=== PATIENT | female | born 1945 | race Caucasian/White ===

== ENCOUNTER → 2016-10-05 | Outpatient (REF) ==
[~2016-10-05] MED LIST: ANTIVERT 25MG25 MG PO; B COMPLEX & B121 TAB PO; CALCIUM 600/VIT1 CA1 PO; COUMADIN 2MG2 MG/TAB PO; IMODIUM 2MG CAPS2 MG PO; LIORESAL 1010 MG/TAB PO; LOPRESSOR 550 MG/TAB PO; MAGNESIUM250 M1 PO; NEURONTIN600 MG/TAB PO; OMEGA 31000 MG PO; PAMELOR 10MG10 MG PO; PRESERVISIONLUT PO; PRILOSEC 20MG20 MG PO; ULTRACET TABL1 UDTAB PO; ZOFRAN ODT4 MG PO
[2016-10-05 16:42] LABS: THYROID STIMULATING HORMONE 0.797 uIU/mL (0.465-4.680)
== END ==
LOC: ZLAB.WCH 15:47
PROVIDERS: Family Medicine
DX: Z01.89 Encounter for other specified special examinations (principal)

== ENCOUNTER → 2017-08-04 | Outpatient (REF) ==
[2017-08-04 15:39] LABS: THYROID STIMULATING HORMONE 0.876 uIU/mL (0.465-4.680)
== END ==
LOC: ZLAB.WCH 14:48
PROVIDERS: Family Medicine
DX: Z01.89 Encounter for other specified special examinations (principal)

== ENCOUNTER → 2018-09-26 | Outpatient (REF) ==
[2018-09-26 16:38] LABS: THYROID STIMULATING HORMONE 0.438 uIU/mL (0.465-4.680)
== END ==
LOC: ZLAB.WCH 15:52
PROVIDERS: Family Medicine
DX: Z01.89 Encounter for other specified special examinations (principal)

== ENCOUNTER → 2019-01-17 | Outpatient (REF) ==
[2019-01-17 10:39] LABS: THYROID STIMULATING HORMONE 1.04 uIU/mL (0.465-4.680)
== END ==
LOC: ZLAB.WCH 09:36
PROVIDERS: Family Medicine
DX: Z01.89 Encounter for other specified special examinations (principal)

== ENCOUNTER → 2022-01-27 | Outpatient (REF) | LOC: ZLAB.WCH 17:49 | DX: I48.91 Unspecified atrial fibrillation (principal) ==

== ENCOUNTER → 2022-01-28 | Outpatient (REF) | LOC: ZLAB.WCH 09:06 | DX: I48.91 Unspecified atrial fibrillation (principal) ==